=== PATIENT | female | born 1995 | race American Indian/Alaskan Native ===

== ENCOUNTER 2022-10-26 13:06 | Emergency (ER) | payer OTHER ==
[2022-10-26 14:06] LABS: ESTIMATED GFR 89 mL/min (>60)
[2022-10-26] MEDS ORDERED: predniSONE 20 MG Tab PO ONE (14:40)
[2022-10-26] MEDS ORDERED: valACYclovir 500 MG Tab PO ONE (14:40)
[2022-10-26 15:03] VITALS: BP 119/80; PULSE 70
== END 2022-10-26 15:22 | disposition home or self-care (01) ==
LOC: JD.ED 13:06
DX: G51.0 Bell's palsy (principal); Z72.0 Tobacco use; Z86.16 Personal history of COVID-19
CPT/HCPCS: 36415; 70450; 80053; 82947; 85025; 93005; 99284; A9270; J7512; 93010